=== PATIENT | male | born 1965 | race Hispanic/Latino ===

== ENCOUNTER 2018-04-13 01:48 | Inpatient (IN) | payer MEDICAID, OTHER ==
[2018-04-13 01:58] VITALS: O2SAT 95
--- NOTE | 2018-04-13 02:04 | ED PDOC ---
Psych Transfer Clearance - Clearance Statement Clearance Statement: Reviewed vital signs, lab results and transfer papers. Patient clinically stable for psychiatric admission.
[2018-04-13] MEDS ORDERED: DiphenhydrAMINE 50 mg/ml Inj IM PRN (02:35)
[2018-04-13] MEDS ORDERED: Magnesium Hydroxide Susp 30 ml UD PO PRN (02:35)
--- NOTE | 2018-04-13 02:47 | PCM.BM ---
<Lety Terrell P - Last Filed: 04/13/18 02:45> Treatment Plan Problems - Problems identified on initial assessmt Hopelessness/Helplessness Date Initiated: 04/13/18 Time Initiated: 02:46 Assessment reference: NA Status: Active Treatment assets and liabiliti Patient Assests: ADL independent, cognitively intact Patient Liabilities: financial problems, poor support system, substance abuse - Milieu Protocol Maintain good personal hygiene: daily Encourage regular showers, daily Remind patient to perform daily oral care, daily Assist patient to perform ADL's Conduct patient checks and document Observation sheet: Q15 minutes Maintain personal safety: every shift Educate patient to report safety concerns to staff, every shift Monitor environment for contraband/sharps Medication safety: Monitor for expected outcome, potential side effects: every shift, Assess barriers to learning: every shift, Assess readiness for medication education: every shift <Willy Smith J - Last Filed: 04/13/18 12:00> Family Contact Family involvement: Famliy/SO not involved Family contact: Patient declines to allow family contact at present Family contact name: Pt denied. Family contacted how many times per week?: 4 - Goals for Treatment Patient goals for treatment: Pt would like his mood to improve and help to stop drinking. Pt specifically mentioned that he feels intense pangs of anxiety and depression. Discharge/Continuing Care - Education Needs Education Needs: Patient Medication, Patient Diagnosis/Disease Process, Patient Coping Skills, Patient Community resources, Patient Aftercare Safety Plan - Discharge Discharge Criteria: Tolerates medication w/o severe side effects, Free of Suicidal thoughts, Free of agitation, Normal sleep pattern, Ability to care for self, No longer exhibiting s/s of withdrawal, Reduction of target symptoms Discharge to:: Home - Treatment Team Participation Patient/Family/SO Statement: 04/13/18 12:11 Pt was seen in team and expressed feeling tired with tremors and feelings of depression and anxiety. Discussed with Family/SO: No Was Patient/Family/SO present at Treatment Team Meeting: Yes <Deanna Quevedo - Last Filed: 04/18/18 11:17> - Diagnosis (1) Alcohol dependence Status: Acute Interventions: motivatioal therap 04/18/18 11:17
[2018-04-13] MEDS: Multivitamin With Minerals Tab PO SCH (09:11)
[2018-04-13 09:32] LABS: T4 8.42 ug/dl (5.5-11.0)
--- NOTE | 2018-04-13 13:30 | PCM.PSYCH ---
Initial Psychiatric Evaluation - Initial Psychiatric Evaluation Type of Admission: Voluntary Legal Status: Capacity Chief Complaint (in patient's own words): I need help with my depression and alcohol use Patient's Reaction to Hospitalization: pt requested help History of Present Illness and Precipitating Events: pt is 52ys old male , no t in formal psychiatric treatment reported depression and anxiety for past twenty years after his sister was murdered and he had to take over the responsibility of her two kids pt also reported since then he started to self medicate with alcohol , pt stated recently has been consuming increasing amounts of alcohol, with increased depression, on day of evaluation he had passive suicidal ideation without plan , presented to ER seeking help reported hopelessness helplessness , poor motivation , denied manic or psychotic symptoms, hx of sedative anxiolytics abuse Current Medications: Active Medications Generic Name Dose Route Start Last Admin Trade Name Freq PRN Reason Stop Dose Admin Acetaminophen 650 mg 04/13/18 02:35 Tylenol 325mg Tab PO Q4 PRN pain level 4-7 Diphenhydramine HCl 50 mg 04/13/18 02:35 Benadryl IM Q6 PRN Extrapyramidal S/S Unable PO Diphenhydramine HCl 50 mg 04/13/18 02:36 Benadryl PO HS PRN Sleep Escitalopram Oxalate 5 mg 04/14/18 09:00 Lexapro PO DAILY MCKENZIE Folic Acid 1 mg 04/13/18 09:00 04/13/18 09:11 Folic Acid PO 1 mg DAILY MCKENZIE Administration Gabapentin 100 mg 04/13/18 17:00 Neurontin PO TID MCKENZIE Haloperidol 5 mg 04/13/18 02:35 Haldol PO Q4 PRN Agitation Haloperidol Lactate 5 mg 04/13/18 02:35 Haldol IM Q4 PRN Agitation, Unable to Take PO Lorazepam 2 mg 04/13/18 02:35 Ativan IM Q4 PRN Anxiety/Agitation,Unable PO Lorazepam 2 mg 04/13/18 02:35 04/13/18 04:34 Ativan PO 2 mg Q4 PRN Administration Anxiety/Agitation Lorazepam 1 mg 04/13/18 09:00 04/13/18 12:47 Ativan PO 1 mg TID MCKENZIE Administration Magnesium Hydroxide 30 ml 04/13/18 02:35 Milk Of Magnesia PO HS PRN Constipation Multivitamins/Minerals 1 tab 04/13/18 09:00 04/13/18 09:11 Therapeutic-M Tab PO 1 tab DAILY MCKENZIE Administration Nicotine 1 patch 04/13/18 09:00 04/13/18 09:11 Nicoderm Cq TD 1 patch DAILY MCKENZIE Administration Thiamine HCl 100 mg 04/13/18 09:00 04/13/18 09:11 Vitamin B1 Tab PO 100 mg DAILY MCKENZIE Administration Past Psychiatric History - Past Psychiatric History Explanation of prior treatment: reported previous treatment at [facility], hx of non compliance History of ETOH/Drug Use: alcohol use for twenty years History of Family Illness: denied Pertinent Medical Hx (Current Medical&Sleep Prob, Allergies): Allergies Allergy/AdvReac Type Severity Reaction Status Date / Time No Known Allergies Allergy Verified 04/13/18 02:00 Mental Status Examination - Personal Presentation Personal Presentation: Looks older than stated age - Affect Affect: Constricted, Depressed - Motor Activity Motor Activity: Psychomotor Retardation - Reliability in Providing Information Reliability in Providing Information: Fair - Speech Speech: Relevant - Mood Mood: Depressed, Anxious - Formal Thought Process Formal Thought Process: Circumstantial - Hallucinations/Delusions Additional comments: pt denied perceptual disturbances, non elicited - Obsessions/Compulsions Obsessions: No Compulsions: No - Cognitive Functions Orientation: Person, Place, Situation Sensorium: Alert Attention/Concentration: Attentive Judgement: Imparied, as evidence by: Poor judgement, Imparied, as evidence by: Lack of insight into illness - Risk Risk: Withdrawal, Diminished functioning - Strength & Assets Inventory Strength & Assets Inventory: Life experience - Limitations Additional comments: poor compliance DSM 5 DX - DSM 5 DSM 5 Diagnosis: 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
--- NOTE | 2018-04-13 19:00 | CP.PCM.CON ---
History of Present Illness - History of Present Illness History of Present Illness: 52 yo male with history of depression admitted to psyche unit because suicidal ideation. Review of Systems - Review of Systems All systems: reviewed and no additional remarkable complaints except (aside from those mentioned above, 12 point system review were negative by me) Past Patient History - Tetanus Immunizations Tetanus Immunization: Unknown - Past Social History Smoking Status: Heavy Smoker > 10 Cigarettes Daily Alcohol: > 2 Drinks/Day Drugs: Denies - CARDIAC Hx Cardiac Disorders: No - PULMONARY Hx Respiratory Disorders: No Other/Comment: pt is 1pk/day smoker x 20yrs - NEUROLOGICAL Hx Neurological Disorder: No - HEENT Hx HEENT Problems: Yes Other/Comment: needs reading glasses - RENAL Hx Chronic Kidney Disease: No - ENDOCRINE/METABOLIC Hx Endocrine Disorders: No - HEMATOLOGICAL/ONCOLOGICAL Hx Blood Disorders: No - INTEGUMENTARY Hx Dermatological Problems: No - MUSCULOSKELETAL/RHEUMATOLOGICAL Hx Back Pain: Yes (no dx.) - GASTROINTESTINAL Hx Gastrointestinal Disorders: Yes Other/Comment: c/o acid reflux - GENITOURINARY/GYNECOLOGICAL Hx Genitourinary Disorders: No - PSYCHIATRIC Hx Substance Use: No - SURGICAL HISTORY Hx Surgeries: No - ANESTHESIA Hx Anesthesia: No Meds Allergies/Adverse Reactions: Allergies Allergy/AdvReac Type Severity Reaction Status Date / Time No Known Allergies Allergy Verified 04/13/18 02:00 - Medications Medications: Current Medications Acetaminophen (Tylenol 325mg Tab) 650 mg PO Q4 PRN PRN Reason: pain level 4-7 Last Admin: 04/13/18 12:59 Dose: 650 mg Diphenhydramine HCl (Benadryl) 50 mg IM Q6 PRN PRN Reason: Extrapyramidal S/S Unable PO Diphenhydramine HCl (Benadryl) 50 mg PO HS PRN PRN Reason: Sleep Escitalopram Oxalate (Lexapro) 5 mg PO DAILY [facility] Folic Acid (Folic Acid) 1 mg PO DAILY [facility] Last Admin: 04/13/18 09:11 Dose: 1 mg Gabapentin (Neurontin) 100 mg PO TID [facility] Last Admin: 04/13/18 17:27 Dose: 100 mg Haloperidol (Haldol) 5 mg PO Q4 PRN PRN Reason: Agitation Haloperidol Lactate (Haldol) 5 mg IM Q4 PRN PRN Reason: Agitation, Unable to Take PO Lorazepam (Ativan) 2 mg IM Q4 PRN PRN Reason: Anxiety/Agitation,Unable PO Lorazepam (Ativan) 2 mg PO Q4 PRN PRN Reason: Anxiety/Agitation Last Admin: 04/13/18 04:34 Dose: 2 mg Lorazepam (Ativan) 1 mg PO TID [facility] Last Admin: 04/13/18 17:28 Dose: 1 mg Magnesium Hydroxide (Milk Of Magnesia) 30 ml PO HS PRN PRN Reason: Constipation Multivitamins/Minerals (Therapeutic-M Tab) 1 tab PO DAILY [facility] Last Admin: 04/13/18 09:11 Dose: 1 tab Nicotine (Nicoderm Cq) 1 patch TD DAILY [facility] Last Admin: 04/13/18 09:11 Dose: 1 patch Thiamine HCl (Vitamin B1 Tab) 100 mg PO DAILY [facility] Last Admin: 04/13/18 09:11 Dose: 100 mg Trazodone HCl (Desyrel) 100 mg PO HS PRN PRN Reason: Insomnia Physical Exam - Constitutional Appears: No Acute Distress - Eye Exam Eye Exam: absent: Scleral icterus - ENT Exam ENT Exam: Mucous Membranes Moist - Neck Exam Neck exam: Negative for: Meningismus - Respiratory Exam Respiratory Exam: absent: Rales, Rhonchi, Wheezes, Respiratory Distress - Cardiovascular Exam Cardiovascular Exam: REGULAR RHYTHM, +S1, +S2 - GI/Abdominal Exam GI & Abdominal Exam: Soft. absent: Tenderness - Rectal Exam Rectal Exam: Deferred - Neurological Exam Neurological exam: Alert, Oriented x3 - Psychiatric Exam Psychiatric exam: Normal Affect - Skin Skin Exam: Dry, Intact Results - Vital Signs Recent Vital Signs: Last Vital Signs Temp 97.7 F 04/13/18 17:00 Pulse 88 04/13/18 17:00 Resp 18 04/13/18 17:00 BP 131/85 04/13/18 17:00 Pulse Ox 95 04/13/18 01:56 - Labs Labs: Laboratory Results - last 24 hr 04/13/18 04/13/18 04/13/18 08:50 08:50 08:50 Hemoglobin A1c 6.1 Triglycerides 124 Cholesterol 206 H LDL Cholesterol Direct 124 HDL Cholesterol 48 Thyroxine (T4) 8.42 TSH 3rd Generation 1.44 RPR Nonreactive Assessment & Plan (1) Suicidal ideation Status: Acute Comment: psyche is managing (2) Alcohol dependence Status: Acute Comment: psyche is managing
[2018-04-14] MEDS: Multivitamin With Minerals Tab PO SCH (08:35)
--- NOTE | 2018-04-14 14:44 | PCM.PYCHPN ---
Psychiatric Progress Note - Psychiatric Progress Note Patient seen today, length of contact: pt evaluated discussed with team chart reviewed Patient Chief Complaint: I nget depressed and I self medicate with alcohol Problems Identified/Issues Discussed: pt on evaluation, continues to report depressed mood, low energy and poor motivation, discussed starting wellbutrin, pt also reported poor sleep with early insomnia, will increase trazodone, motivational therapy provided in reference to alcohol use , discussed with pt possible start on vivitrol injection no reported suicidal or homicidal ideation Medical Problems: reported previous treatment at [facility], hx of non compliance DSM 5 Symptoms Update: alcohol induced mood disorder with depressive features alcohol use disorder major depression Medication Change: Yes (start wellbutrin) Medical Record Reviewed: Yes Mental Status Examination - Cognitive Function Orientation: Person, Place, Situation Attention: WNL Concentration: WNL Association: WNL Fund of Knowledge: WN Decription of patient's judgement and insights: partial insight , poor judgment - Mood Mood: Depressed, Anxious - Affect Affect: Constricted, Depressed - Speech Speech: Soft - Formal Thought Process Formal Thought Process: Circumstantial - Suicidal Ideation Suicidal Ideation: No - Homicidal Ideation Homicidal Ideation: No Goal/Treatment Plan - Goal/Treatment Plan Need for Continued Stay: Severe depression anxiety, Discharge may exacerbated symptoms Progress Toward Problem(s) and Goals/Treatment Plan: pt will be monitored for symptoms and signs of alcohol withdrawal increase neurontin 200mg tid for anxiety discontinue lexapro start wellbutrin 75mg daily motivational therapy referral to outpatient rehab on discharge Estimated Date of D/C: 04/18/18
[2018-04-15 08:56] VITALS: RESP 18
[2018-04-15] MEDS: Multivitamin With Minerals Tab PO SCH (09:12)
--- NOTE | 2018-04-15 13:34 | PCM.PYCHPN ---
Psychiatric Progress Note - Psychiatric Progress Note Patient seen today, length of contact: pt evaluated discussed with team chart reviewed Patient Chief Complaint: I still feel very anxious Problems Identified/Issues Discussed: pt on evaluation, reported increase anxiety , having cravings for alcohol, discussed with pt increasing dose of neurontin, CBT and motivational therapy provided, discussed being on maintenance treatment possible vivitrol injection on discharge , also discussed gradual increase dose of wellbutrin no reported suicidal or homicidal ideation Medical Problems: reported previous treatment at [facility], hx of non compliance DSM 5 Symptoms Update: alcohol induced mood disorder with depressive features alcohol use disorder generalized anxiety disorder major depression Medication Change: Yes (increase neurontin) Medical Record Reviewed: Yes Mental Status Examination - Cognitive Function Orientation: Person, Place, Situation Attention: WNL Concentration: WNL Association: WNL Fund of Knowledge: WN Decription of patient's judgement and insights: partial insight , poor judgment - Mood Mood: Depressed, Anxious - Affect Affect: Constricted, Depressed - Speech Speech: Soft - Formal Thought Process Formal Thought Process: Circumstantial Psychotic Thoughts and Behaviors: denied perceptual disturbances, non elicited - Suicidal Ideation Suicidal Ideation: No - Homicidal Ideation Homicidal Ideation: No Goal/Treatment Plan - Goal/Treatment Plan Need for Continued Stay: Severe depression anxiety, Discharge may exacerbated symptoms Progress Toward Problem(s) and Goals/Treatment Plan: increase neurontin 300mg tid for anxiety wellbutrin 75mg daily, will increase gradually motivational therapy referral to outpatient rehab on discharge Estimated Date of D/C: 04/18/18
[2018-04-16] MEDS: Multivitamin With Minerals Tab PO SCH (08:49)
--- NOTE | 2018-04-16 12:57 | PCM.PYCHPN ---
Psychiatric Progress Note - Psychiatric Progress Note Patient seen today, length of contact: pt evaluated discussed with team chart reviewed Patient Chief Complaint: I feel anxious Problems Identified/Issues Discussed: pt on evaluation, continues to present with anxious mood and affect , having cravings for alcohol, requesting benzodiazepines discussed with pt increasing dose of neurontin, CBT and motivational therapy provided, , also discussed gradual increase dose of wellbutrin, no reported side effects of medications no reported suicidal or homicidal ideation Medical Problems: reported previous treatment at [facility], hx of non compliance DSM 5 Symptoms Update: alcohol induced mood disorder with depressive features alcohol use disorder major depression generalized anxiety disorder Medication Change: Yes (increase neurontin) Medical Record Reviewed: Yes Mental Status Examination - Cognitive Function Orientation: Person, Place, Situation Attention: WNL Concentration: WNL Association: WNL Fund of Knowledge: WN Decription of patient's judgement and insights: partial insight , poor judgment - Mood Mood: Depressed, Anxious - Affect Affect: Constricted, Depressed - Speech Speech: Soft - Formal Thought Process Formal Thought Process: Circumstantial Psychotic Thoughts and Behaviors: denied perceptual disturbances, non elicited - Suicidal Ideation Suicidal Ideation: No - Homicidal Ideation Homicidal Ideation: No Goal/Treatment Plan - Goal/Treatment Plan Need for Continued Stay: Severe depression anxiety, Discharge may exacerbated symptoms Progress Toward Problem(s) and Goals/Treatment Plan: increase neurontin 400mg tid for anxiety wellbutrin 100mg daily, motivational therapy referral to outpatient rehab on discharge Estimated Date of D/C: 04/18/18
[2018-04-17] MEDS: Multivitamin With Minerals Tab PO SCH (08:28)
--- NOTE | 2018-04-17 14:40 | PCM.PYCHPN ---
Psychiatric Progress Note - Psychiatric Progress Note Patient seen today, length of contact: pt evaluated discussed with team chart reviewed Patient Chief Complaint: I am not sure if I will be able to function without the alcohol , I get very anxious Problems Identified/Issues Discussed: pt on evaluation, continues to present with anxious mood and affect , pt in pre contemplation phase, motivational therapy provided and discussed with pt senior living effect of alcohol on mental status and physical health l, pt continues to requesting benzodiazepines discussed with pt starting vistaril , CBT prtovided no side effects with increase dose of wellbutrin, no reported suicidal or homicidal ideation Medical Problems: reported previous treatment at [facility], hx of non compliance DSM 5 Symptoms Update: alcohol induced mood disorder with depressive features major depression generalized anxiety disorder Medication Change: Yes (start vistaril) Medical Record Reviewed: Yes Mental Status Examination - Cognitive Function Orientation: Person, Place, Situation Attention: WNL Concentration: WNL Association: WN Fund of Knowledge: [facility] Decription of patient's judgement and insights: partial insight , poor judgment - Mood Mood: Depressed, Anxious - Affect Affect: Constricted, Depressed - Speech Speech: Soft - Formal Thought Process Formal Thought Process: Circumstantial Psychotic Thoughts and Behaviors: denied perceptual disturbances, non elicited - Suicidal Ideation Suicidal Ideation: No - Homicidal Ideation Homicidal Ideation: No Goal/Treatment Plan - Goal/Treatment Plan Need for Continued Stay: Severe depression anxiety, Discharge may exacerbated symptoms Progress Toward Problem(s) and Goals/Treatment Plan: neurontin 400mg tid for anxiety wellbutrin 100mg daily, discontinue ativan start vistaril 50mg q8 for anxiety motivational therapy referral to outpatient rehab on discharge Estimated Date of D/C: 04/18/18
[2018-04-18] MEDS: Multivitamin With Minerals Tab PO SCH (09:17)
[2018-04-18 09:20] VITALS: BP 126/66; PULSE 78; TEMP 97.2
--- NOTE | 2018-04-18 13:37 | PCM.PYCHDC ---
Mental Status Examination - Mental Status Examination Orientation: Person, Place Memory: Intact Mood: Neutral Affect: Broad Speech: Appropriate Attention: WNL Concentration: WNL Association: WNL Fund of Knowledge: WNL Formal Thought Process: No Impairment Description of patient's judgement and insight: partial insight , poor judgment Psychotic Thoughts and Behaviors: denied perceptual disturbances, non elicited Suicidal Ideation: No Current Homicidal Ideation?: No Discharge Summary - Discharge Note Reason for Hospitalization: pt is 52ys old male , no t in formal psychiatric treatment reported depression and anxiety for past twenty years after his sister was murdered and he had to take over the responsibility of her two kids pt also reported since then he started to self medicate with alcohol , pt stated recently has been consuming increasing amounts of alcohol, with increased depression, on day of evaluation he had passive suicidal ideation without plan , presented to ER seeking help reported hopelessness helplessness , poor motivation , denied manic or psychotic symptoms, hx of sedative anxiolytics abuse Psychiatric History (includes Medical, Family, Personal Hx): ONE PREVIOUS HOSPITALIZATION, NON COMPLIANT Consultations:: List each consultation separately and include: 1. Reason for request. 2. Findings. 3. Follow-up Summary of Hospital Course include:: 1. Description of specific treatment plan utilized for patients during their course of treatmen. 2. Summarize the time- course for resolution of acute symptoms and/or regressed behaviors. 3. Describe issues identified and worked on during hospitalization. 4. Describe medication utilized. 5. Describe medical problems identified and treated. 6. Reassessment of suicide risk Summary of Hospital Course: pton admission was started on ativan protocol for alcohol withdrawal, pt was started on neurontin for anxiety, wellbutrin for depression motivational group and supportive therapy was provided, discussed with pt attending AA meetings and possible vivitrol injection maintenance treatment pt on discharge mental status was stable , pt denied any current suicidal or homicidal ideation, denied perceptual disturbances - Diagnosis (1) Alcohol dependence Current Visit: Yes Status: Acute - Final Diagnosis (DSM 5) Condition upon Discharge: GOOD DSM 5: major depression recurrent severe without psychotic features alcohol use disorder generalized anxiety disorder Disposition: HOME/ ROUTINE Follow-up Treatment Plan: RWJ, outpatient [facility] Prescriptions/Medication Reconciliation: buPROPion [Wellbutrin] 100 mg PO DAILY 30 Days #30 tab Gabapentin [Neurontin] 400 mg PO TID 30 Days #90 cap Nicotine 14 mg/24 hr [Nicoderm CQ] 1 patch TD DAILY 30 Days #30 patch traZODone [Desyrel] 200 mg PO HS 30 Days #60 tab - Smoking Cessation Smoking Cessation Medication prescribed: Yes - Antipsychotic Medications Pt discharged on 2 or more routine antipsychotic medications: No
== END 2018-04-18 15:28 | disposition home or self-care (01) | DRG 430 ==
LOC: H.ER 01:48 → H.PSYCH 02:00
PROVIDERS: ADMIT Psychiatry & Neurology Psychiatry; ATTEND Psychiatry & Neurology Psychiatry
PROC: GZHZZZZ Group Psychotherapy (ICD-10-PCS; principal; 2018-04-13)
PROC: GZ51ZZZ Individual Psychotherapy, Behavioral (ICD-10-PCS; 2018-04-13)
DX: F33.2 Major depressive disorder, recurrent severe without psychotic features (principal); F10.24 Alcohol dependence with alcohol-induced mood disorder; F10.280 Alcohol dependence with alcohol-induced anxiety disorder; F41.1 Generalized anxiety disorder; G47.00 Insomnia, unspecified; K21.9 Gastro-esophageal reflux disease without esophagitis; F17.210 Nicotine dependence, cigarettes, uncomplicated; Z91.19 Patient's noncompliance with other medical treatment and regimen; R45.851 Suicidal ideations; M54.9 Dorsalgia, unspecified